=== PATIENT | male | born 1975 | race Caucasian/White ===

== ENCOUNTER 2016-09-16 11:15 | Emergency (ER) | payer OTHER ==
[2016-09-16 11:47] LABS: BILIRUBIN NEGATIVE (NEGATIVE); BLOOD 3+ Ery/uL (NEGATIVE); CLARITY CLOUDY (CLEAR); COLOR AMBER (YELLOW); GLUCOSE (U) NORMAL (NORMAL); KETONE (U) NEGATIVE (NEGATIVE); LEUKOCYTES NEGATIVE Leu/uL (NEGATIVE); NITRITE NEGATIVE (NEGATIVE); PROTEIN 2+ mg/dL (NEGATIVE); SPECIFIC GRAVITY >=1.030 (1.001-1.030); pH 5.5 (5.0-9.0)
[2016-09-16 11:51] LABS: BACTERIA TRACE; SQUAMOUS EPITHELIAL CELLS RARE; URINARY RBC TNTC
[2016-09-16 12:00] LABS: AMPHETAMINES NEGATIVE (NEGATIVE); BARBITURATES NEGATIVE (NEGATIVE); BENZODIAZEPINES NEGATIVE (NEGATIVE); COCAINE NEGATIVE (NEGATIVE); MARIJUANA (THC) NEGATIVE (NEGATIVE)
[2016-09-16 12:01] LABS: METHADONE NEGATIVE (NEGATIVE); TRICYCLIC ANTIDEPRESSANT NEGATIVE (NEGATIVE)
[2016-09-16 12:03] LABS: BASOPHIL 0.8 % (0-2); HCT 42.7 % (42.0-52.0); HGB 14.9 g/dl (13.2-18.0); LYMPHOCYTE 42.5 % (15-48); MCH 30.3 pg (25.0-31.0); MCHC 34.9 g/dL (32.0-36.0); MPV 9.2 fL (6.0-9.5); NEUTROPHIL 45.7 % (41-80); PLT 228 K/uL (150-400); RBC 4.91 M/uL (4.70-6.00); RDW 13.2 % (11.5-14.0); WBC 4.8 K/uL (4.0-10.5)
[2016-09-16 12:31] LABS: CREATININE 0.8 mg/dL (0.7-1.2); POTASSIUM 3.7 mmol/L (3.5-5.1)
== END 2016-09-16 14:20 | disposition home or self-care (01) ==
LOC: FER 11:15
PROVIDERS: Nurse Practitioner Family
DX: N20.0 Calculus of kidney (principal); N28.89 Other specified disorders of kidney and ureter
CPT/HCPCS: 36415; 80048; 80305; 81001; 85025; J1170; J2405

== ENCOUNTER 2016-09-25 04:19 | Emergency (ER) | payer OTHER ==
[2016-09-25 04:52] LABS: BASOPHIL 0.4 % (0-2); EOSINOPHIL 1.4 % (0-5); HCT 42.9 % (42.0-52.0); HGB 15.2 g/dl (13.2-18.0); LYMPHOCYTE 36.8 % (15-48); MCH 30.6 pg (25.0-31.0); MCHC 35.4 g/dL (32.0-36.0); MCV 86.5 fL (78.0-100.0); MONOCYTE 9.1 % (0-12); MPV 9.2 fL (6.0-9.5); NEUTROPHIL 52.3 % (41-80); PLT 269 K/uL (150-400); RBC 4.96 M/uL (4.70-6.00); RDW 13.5 % (11.5-14.0); WBC 5.2 K/uL (4.0-10.5)
[2016-09-25 05:01] LABS: BILIRUBIN 1+ mg/dL (NEGATIVE); BLOOD 3+ Ery/uL (NEGATIVE); CLARITY CLOUDY (CLEAR); COLOR RED (YELLOW); GLUCOSE (U) NORMAL (NORMAL); KETONE (U) NEGATIVE (NEGATIVE); LEUKOCYTES NEGATIVE Leu/uL (NEGATIVE); NITRITE NEGATIVE (NEGATIVE); PROTEIN 2+ mg/dL (NEGATIVE); SPECIFIC GRAVITY >=1.030 (1.001-1.030); pH 5.5 (5.0-9.0)
[2016-09-25 05:06] LABS: BILIRUBIN - TOTAL 0.5 mg/dL (0.1-1.0); CREATININE 0.8 mg/dL (0.7-1.2); GLOBULIN (CALCULATION) 2.8 g/dL (2.2-4.2); POTASSIUM 3.7 mmol/L (3.5-5.1); TOTAL PROTEIN 6.8 g/dL (6.4-8.3)
[2016-09-25 05:10] LABS: BACTERIA TRACE; CALCIUM OXALATE CRYSTALS TRACE; SQUAMOUS EPITHELIAL CELLS RARE; URINARY RBC TNTC
== END 2016-09-25 06:09 | disposition home or self-care (01) ==
LOC: FER 04:19
PROVIDERS: Emergency Medicine
DX: N13.2 Hydronephrosis with renal and ureteral calculous obstruction (principal); Z87.442 Personal history of urinary calculi; Z79.899 Other long term (current) drug therapy
CPT/HCPCS: 36415; 80053; 81001; 85025; J1885; J2270; J2405

== ENCOUNTER → 2020-05-13 | Day surgery (SDC) | payer OTHER ==
[~2020-05-13] MED LIST: ACETAMINOPHEN500 M1 PO; COLACE100 MG PO; FLOMAX0.4 MG PO; MOTRIN600 MG PO; NAPROXEN500 MG PO; OXY-IR 5MG5 MG PO; PERCOCET 7.5-31 EACH PO
== END | disposition home or self-care (01) ==
LOC: FAS 07:20
DX: K80.20 Calculus of gallbladder without cholecystitis without obstruction (principal); K82.8 Other specified diseases of gallbladder; Z87.442 Personal history of urinary calculi; K76.0 Fatty (change of) liver, not elsewhere classified; K40.90 Unilateral inguinal hernia, without obstruction or gangrene, not specified as recurrent; E66.3 Overweight; Z98.890 Other specified postprocedural states; Z79.899 Other long term (current) drug therapy; Z20.822 Contact with and (suspected) exposure to COVID-19; Z68.29 Body mass index [BMI] 29.0-29.9, adult
CPT/HCPCS: J1100; J1170; J1644; J2250; J2405; J2704; J2710; J3010; J7120

== ENCOUNTER 2021-11-24 03:02 | Emergency (ER) | payer OTHER ==
[~2021-11-24 03:02] MED LIST changes: +AMOXICILLIN500 M2 PO
[2021-11-24 04:21] LABS: BASOPHIL 0.4 % (0-2); EOSINOPHIL 0.3 % (0-5); HCT 45.5 % (42.0-52.0); HGB 15.7 g/dl (13.2-18.0); LYMPHOCYTE 15.6 % (15-48); MCH 30.5 pg (25.0-31.0); MCHC 34.5 g/dL (32.0-36.0); MCV 88.3 fL (78.0-100.0); MONOCYTE 7.2 % (0-12); MPV 9.3 fL (6.0-9.5); NEUTROPHIL 76.1 % (41-80); NRBC 0; PLT 244 K/uL (150-400); RBC 5.15 M/uL (4.70-6.00); RDW 12.5 % (11.5-14.0); WBC 11.4 K/uL (4.0-10.5)
[2021-11-24 04:22] LABS: BILIRUBIN NEGATIVE (NEGATIVE); BLOOD 3+ Ery/uL (NEGATIVE); CLARITY CLEAR (CLEAR); COLOR YELLOW (YELLOW); GLUCOSE (U) NORMAL (NORMAL); LEUKOCYTES NEGATIVE Leu/uL (NEGATIVE); NITRITE NEGATIVE (NEGATIVE); PROTEIN TRACE (LOW) mg/dL (NEGATIVE); SPECIFIC GRAVITY >=1.030 (1.001-1.030); UROBILINOGEN 0.2 mg/dL (0.2-1.0)
[2021-11-24 04:28] LABS: AMORPHOUS URATES CRYSTALS TRACE; BACTERIA TRACE; URINARY RBC 20-50
[2021-11-24 04:38] LABS: ALBUMIN 3.6 g/dL (3.4-5.0); BILIRUBIN - TOTAL 0.5 mg/dL (0.2-1.0); BUN/CREAT RATIO (CALC) 10.2 RATIO; CREATININE 0.88 mg/dL (0.67-1.17); GLOBULIN (CALCULATION) 3.2 g/dL; TOTAL PROTEIN 6.8 g/dL (6.4-8.2)
[2021-11-24] MEDS ORDERED: ONDANSETRON ODT4 MG PO (05:54)
[2021-11-24] MEDS ORDERED: FLOMAX0.4 MG PO (05:54)
[2021-11-24] MEDS ORDERED: NORCO 5-325 TA1 EACH PO (05:54)
== END 2021-11-24 05:55 | disposition home or self-care (01) ==
LOC: FER 03:02
PROVIDERS: Emergency Medicine
DX: N13.2 Hydronephrosis with renal and ureteral calculous obstruction (principal)
CPT/HCPCS: 36415; 80053; 81001; 85025; J1170; J1885; J2405; J7030

== ENCOUNTER → 2021-11-27 | Day surgery (SDC) | payer OTHER ==
[~2021-11-27] VITALS: Ht 172.7 cm; Wt 79.5 kg
[~2021-11-27] MED LIST changes: +NORCO 5-325 TA1 EACH PO; +ONDANSETRON ODT4 MG PO
== END | disposition home or self-care (01) ==
LOC: FAS 08:06
DX: K52.9 Noninfective gastroenteritis and colitis, unspecified (principal); D12.2 Benign neoplasm of ascending colon; K40.20 Bilateral inguinal hernia, without obstruction or gangrene, not specified as recurrent; E66.3 Overweight; Z68.27 Body mass index [BMI] 27.0-27.9, adult
CPT/HCPCS: J2250; J2704; J7120